=== PATIENT | female | born 1935 | race Caucasian/White ===

== ENCOUNTER 2019-01-14 12:05 | Emergency (ER) | payer MEDICARE ==
[~2019-01-14] VITALS: Ht 167.6 cm; Wt 88.5 kg
--- NOTE | ~2019-01-14 | EKG ---
[place], [place] ELECTROCARDIOGRAM REPORT NAME: JENNIFER ATKINS UNIT #: [id number] ROOM: DOCTOR: EPIPHANY DRAFT REPORT BIRTHDATE: [birth year] [facility] Test Date: 2019-01-14 Test Time: 12:07:06 Pat Name: JENNIFER ATKINS Department: er Room: Gender: F Auto Body Estimator: : 1935 Requested By: ASHVIN ANDREW Order Number: [id number] Reading MD: Shady Valderrama MD Measurements Intervals [place] Rate: 77 P: -27 NC: 186 QRS: -21 QRSD: 99 T: 29 QT: 385 QTc: 436 Interpretive Statements Sinus rhythm Borderline left axis deviation Low voltage, precordial leads Abnormal R-wave progression, late transition possible prior anterior NC Nonspecific T abnormalities, anterior leads Baseline wander in lead(s) V2 Electronically Signed On 01-15-2019 7:47:29 PDT by Shady Valderrama MD CM:EKGRPT:ELECTROCARDIOGRAM REPORT [id number] ASHVIN PIKE DRAFT REPORT ASHVIN ANDREW M.D.
[2019-01-14 12:20] LABS: BASO % 0.4 % (0.0-1.0); EOS # 0.1 10*3/uL (0.0-0.4); EOS % 2.8 % (1.0-4.0); HEMATOCRIT 30.7 % (37.0-47.0); HEMOGLOBIN 8.5 g/dl (12.0-16.0); LYMPH # 0.2 10*3/uL (1.3-4.4); LYMPH % 4.5 % (27.0-41.0); MEAN CELL VOLUME 97.8 fl (81.0-99.0); MEAN CORPUSCULAR HGB 27.1 pg (27.0-31.0); MEAN CORPUSCULAR HGB CONC 27.7 g/dl (33.0-37.0); MEAN PLATELET VOLUME 9.4 fl (9.6-12.3); MONO # 0.2 10*3/uL (0.1-1.0); MONO % 3.6 % (3.0-9.0); NEUT # 4.1 10*3/uL (2.3-7.9); NEUT % 88.5 % (47.0-73.0); PLATELET COUNT AUTOMATED 240 10*3/uL (130-400); RED BLOOD COUNT 3.14 10*6/uL (4.10-5.10); RED CELL DISTRI WIDTH 18.1 % (0-14.5); WHITE BLOOD COUNT 4.7 10*3/uL (4.8-10.8)
[2019-01-14 12:34] LABS: ACT PARTIAL THROMBO TIME 28.3 SECONDS (20.0-32.1); INTERNATIONAL NORM RATIO 0.9 (2.0-3.5)
[2019-01-14 12:35] LABS: ALBUMIN 2.6 gm/dl (3.1-4.5); ALKALINE PHOSPHATASE 75 U/L (45-117); BUN 13 mg/dl (7-24); CHLORIDE 101 mmol/L (98-107); CREATININE 0.82 mg/dL (0.55-1.02); POTASSIUM 3.8 mmol/L (3.5-5.1); SGOT/AST 9 IU/L (3-35); SGPT/ALT 7 U/L (12-78); SODIUM 140 mmol/L (136-145); TOTAL PROTEIN 7.2 gm/dL (6.4-8.2)
[2019-01-14 12:36] LABS: TROPONIN I < 0.015 ng/ml (<0.045)
== END 2019-01-14 15:08 | disposition home or self-care (01) ==
LOC: ED 12:05
PROVIDERS: Emergency Medicine
DX: J18.1 Lobar pneumonia, unspecified organism (principal); I50.9 Heart failure, unspecified; J44.9 Chronic obstructive pulmonary disease, unspecified; Z88.0 Allergy status to penicillin; Z88.5 Allergy status to narcotic agent; Z88.6 Allergy status to analgesic agent; Z91.013 Allergy to seafood; Z88.8 Allergy status to other drugs, medicaments and biological substances

== ENCOUNTER 2019-02-11 13:10 | Emergency (ER) | payer MEDICARE ==
[~2019-02-11] VITALS: Ht 170.1 cm; Wt 74.8 kg
[2019-02-11 14:12] LABS: BASO % 0.5 % (0.0-1.0); EOS # 0.3 10*3/uL (0.0-0.4); EOS % 4.1 % (1.0-4.0); HEMATOCRIT 31.8 % (37.0-47.0); HEMOGLOBIN 9.6 g/dl (12.0-16.0); LYMPH # 0.7 10*3/uL (1.3-4.4); LYMPH % 10.4 % (27.0-41.0); MEAN CELL VOLUME 97.2 fl (81.0-99.0); MEAN CORPUSCULAR HGB 29.4 pg (27.0-31.0); MEAN CORPUSCULAR HGB CONC 30.2 g/dl (33.0-37.0); MEAN PLATELET VOLUME 10.5 fl (9.6-12.3); MONO # 0.6 10*3/uL (0.1-1.0); MONO % 8.9 % (3.0-9.0); NEUT % 75.8 % (47.0-73.0); PLATELET COUNT AUTOMATED 203 10*3/uL (130-400); RED BLOOD COUNT 3.27 10*6/uL (4.10-5.10); RED CELL DISTRI WIDTH 18.9 % (0-14.5); WHITE BLOOD COUNT 6.5 10*3/uL (4.8-10.8)
[2019-02-11 14:28] LABS: ALBUMIN 2.9 gm/dl (3.1-4.5); ALKALINE PHOSPHATASE 81 U/L (45-117); BUN 38 mg/dl (7-24); CHLORIDE 82 mmol/L (98-107); CREATININE 1.32 mg/dL (0.55-1.02); POTASSIUM 2.6 mmol/L (3.5-5.1); SGOT/AST 15 IU/L (3-35); SGPT/ALT 12 U/L (12-78); SODIUM 134 mmol/L (136-145); TOTAL PROTEIN 7.2 gm/dL (6.4-8.2)
[2019-02-11 14:39] LABS: BILIRUBIN NEGATIVE (NEGATIVE); BLOOD 1+ (NEGATIVE); CLARITY CLEAR (CLEAR); COLOR YELLOW (YELLOW); GLUCOSE NEGATIVE (NEGATIVE); KETONE NEGATIVE (NEGATIVE); LEUKO ESTERASE NEGATIVE (NEGATIVE); NITRITE NEGATIVE (NEGATIVE); SPECIFIC GRAVITY <= 1.005 (1.005-1.030); UROBILINOGEN 0.2 E.U./dl (0.2-1.0)
[2019-02-11 15:05] LABS: HYALINE CAST 21-30
[2019-02-11 15:06] LABS: BACTERIA TRACE
== END 2019-02-11 16:30 ==
LOC: ED 13:10
PROVIDERS: Emergency Medicine
DX: S70.01XA Contusion of right hip, initial encounter (principal); M54.2 Cervicalgia; M25.522 Pain in left elbow; J44.9 Chronic obstructive pulmonary disease, unspecified; G30.9 Alzheimer's disease, unspecified; F02.80 Dementia in other diseases classified elsewhere, unspecified severity, without behavioral disturbance, psychotic disturbance, mood disturbance, and anxiety; G62.9 Polyneuropathy, unspecified; I50.9 Heart failure, unspecified; I11.0 Hypertensive heart disease with heart failure; Z88.0 Allergy status to penicillin; Z88.6 Allergy status to analgesic agent; Z91.013 Allergy to seafood; W18.39XA Other fall on same level, initial encounter; Y93.89 Activity, other specified; Y92.128 Other place in nursing home as the place of occurrence of the external cause; Y99.8 Other external cause status

== ENCOUNTER 2019-02-27 10:49 | Inpatient (IN) | payer MEDICARE, MEDICAID ==
[~2019-02-27] VITALS: Ht 172.7 cm; Wt 82.1 kg
--- NOTE | ~2019-02-27 | EKG ---
[place], [place] ELECTROCARDIOGRAM REPORT NAME: JENNIFER ATKINS UNIT #: [id number] ROOM: 408 DOCTOR: GLENDY DRAFT REPORT BIRTHDATE: [birth year] [facility] Test Date: 2019-02-27 Test Time: 11:01:30 Pat Name: JENNIFER ATKINS Department: Room: 408 Gender: F Refueler: : 1935 Requested By: TOÑITO COX Order Number: [id number] Reading MD: Radha Blankenship Measurements Intervals [place] Rate: 74 P: -30 MO: 157 QRS: -21 QRSD: 114 T: 43 QT: 438 QTc: 486 Interpretive Statements Sinus rhythm Borderline intraventricular conduction delay Abnormal R-wave progression, late transition Nonspecific repol abnormality, diffuse leads Compared to ECG 01/14/2019 12:07:06 Early repolarization now present Myocardial infarct finding no longer present T-wave abnormality no longer present Electronically Signed On 03-01-2019 11:57:29 PST by Radha Blankenship CM:EKGRPT:ELECTROCARDIOGRAM REPORT [id number] TOÑITO MERRILL DRAFT REPORT TOÑITO COX DO
--- NOTE | ~2019-02-27 | CON ---
[place], [place] REPORT OF CONSULTATION NAME: JENNIFER ATKINS UNIT #: [id number] ROOM: 408 DOCTOR: CEE MART MDDAVID BIRTHDATE: [birth year] DOS: 02/28/2019 PULMONARY CONSULTATION, EVALUATION AND MANAGEMENT CONSULTATION REQUESTED BY: Hospitalist service. REASON FOR CONSULTATION: For assessment of respiratory distress as well. HISTORY OF PRESENT ILLNESS: This is an 84-year-old elderly female patient who has been admitted to the hospital under the care of the hospitalist service on 02/27/2019. She has been reported she has history of chronic obstructive pulmonary disease and chronic hypoxic respiratory failure, and history of dementia. She stays in the nursing facility. She has been noted forgetful. The patient is not able to give me much history. All the history or most of the history currently documented with medical record documentation by the other physician's notes. She has been brought to the hospital. She has been noted low potassium level. The patient has been noted with symptoms of dizziness as well. The patient reporting symptoms of increased confusion as well. Coughing chest congestion. She is not sure about symptoms of shortness of breath. Denies symptoms of headache or diplopia. She has arterial blood gases done yesterday, which was noted with evidence of hypercapnia. She has been started on the BiPAP that had been used for several hours this morning. The patient is using oxygen supplement nasal cannula. Remaining history is limited. PAST MEDICAL HISTORY: Reported: 1. COPD. 2. Dementia. 3. Osteoarthritis. 4. Congestive heart failure, whether a preserved ejection fraction or reduced ejection fraction was not known. 5. Osteoarthritis. 6. Hypothyroidism. PAST SURGICAL HISTORY: Listed as cholecystectomy, hernia repair, total knee replacement, surgery of the neck and partial hysterectomy. SOCIAL HISTORY: Resident of senior living. Denies tobacco, alcohol or illicit drug use. FAMILY HISTORY: The patient reported father with complication of black lung and mother during childbirth at younger age. CURRENT MEDICATIONS: Which were administered on this hospitalization were reviewed as vitamin D, sertraline, calcium carbonate, chewable aspirin, levothyroxine, Remeron, gabapentin, DuoNeb, and some other medications. The patient is also seemed to be taking prednisone 2.5 mg again the reason for that was unknown. DRUG ALLERGIES: REPORTED: 1. PENICILLIN. [place], [place] REPORT OF CONSULTATION NAME: JENNIFER ATKINS UNIT #: [id number] ROOM: 408 DOCTOR: CEE MART MD,DAVID BIRTHDATE: [birth year] 2. CODEINE. 3. OXYCODONE. 4. HYDROMORPHONE. 5. SHRIMPS. PHYSICAL EXAMINATION: GENERAL: An 84-year-old female patient who has been currently noted awake and alert, lying in the bed. Height of 5 feet 8 inches, 175 pounds, BMI 26. Using oxygen supplement nasal cannula. VITAL SIGNS: Normal temperature, respiratory rate 18-16, heart rate 65-73, blood pressure 92/42-108/68. Pulse ox saturation on 2 liters nasal cannula 97% saturation. HEENT: Examination shows head was atraumatic. Eyes nonicterus. NECK: Supple. CARDIOVASCULAR: S1, S2 audible. LUNGS: Decreased breath in the lungs were noted bilaterally with expiratory wheezing moderately. ABDOMEN: Soft, nontender. Bowel sounds present. It was flat. EXTREMITIES: . Mild edema of the lower extremity was noted. VISIBLE SKIN: No lesions or rashes. CENTRAL NERVOUS SYSTEM: The patient appeared to be overall intact. LABORATORY DATA: CBC that was done yesterday, WBC count 7.2, hemoglobin 10.1, platelet count of 34. MCV 103. Platelet count normal. CMP yesterday, BUN 37, creatinine 1.34. Potassium was 2.3. CO2 was noted at 53, which is severely elevated, chloride of 84. Lactic acid was 2.3. This morning's lab, WBC count was noted as 5.5, hemoglobin 9.9, hematocrit 34.2, platelet count 288,000. CMP that was done this morning, BUN 32, creatinine was normal. CO2 was noted at 52. Potassium was 3.4. Phosphorus 2.2. Chest x-ray, 1 view, which was done yesterday reviewed, shows increased interstitial marking was noted in the lungs bilaterally with a small pleural fluid cannot be excluded. With just 1 view x-ray she does have some area of scarring. IMPRESSION: 1. The patient has been noted with history of dementia, noted very severe metabolic acidosis with compensatory respiratory acidosis. Possible consideration of chronic obstructive pulmonary disease, intravascular volume depletion as well. Severe hypokalemia would also result in metabolic acidosis as well as respiratory acidosis as well related to diuretics as well. Primary alkalosis problem should be excluded as well. 2. Acute kidney injury noted with resolution at this time. PLAN OF MANAGEMENT: Avoid any diuretics, intravascular volume correction as well. The BiPAP is not necessary at this time. The patient was noted with metabolic and respiratory alkalosis with arterial blood gas, which was done yesterday shows pH of 7.47, pCO2 of 72, pO2 of 78. Obtain a chest x-ray, PA and lateral, as well. Aggressive supplementation of potassium as well. The patient will be started on the Diamox, but after the correction of the potassium. Other therapy, plan of management additional treatment changes will be ordered was made based on progression of the illness. Supportive care, other therapy, plan [place], [place] REPORT OF CONSULTATION NAME: JENNIFER ATKINS UNIT #: [id number] ROOM: [facility] DOCTOR: DAVID CALIXTO MD BIRTHDATE: [birth year] of management, care plan of treatment and management plan of care. Thanks for allowing me to participate in the care of this patient. DAVID MIKE MD CM:CONSTR:REPORT OF CONSULTATION 1221 02/28/19 1926 interface
--- NOTE | ~2019-02-27 | PR ---
[place], [place] PROGRESS NOTE NAME: JENNIFER ATKINS UNIT #: [id number] ROOM: 408 DOCTOR: DAVID CALIXTO MD BIRTHDATE: [birth year] DOS: 03/01/2019 SUBJECTIVE: She has been noted comfortable at this time without any distress this morning, noted fully awake and alert. Denies symptoms of chest pain, fever or chills. She has been noted without any acute symptoms today. REVIEW OF SYSTEMS: Very limited because of history of dementia, but does not complain of any acute symptoms. OBJECTIVE: VITAL SIGNS: Normal temperature, respiratory rate 16, heart rate 78, blood pressure ____ /51. Pulse oxygen saturation recorded on 2 liters nasal cannula 93% saturation. HEENT: Examination shows head was atraumatic. Eyes nonicterus. NECK: Supple. CARDIOVASCULAR: S1, S2 audible. LUNGS: Noted with decreased breath sounds in the lungs bilaterally. Wheezing noted decreased. ABDOMEN: Soft, nontender. Bowel sounds present. EXTREMITIES: Noted without any acute edema. MUSCULOSKELETAL: Without acute deformities. LABORATORY DATA: BMP that was done yesterday after supplementation of potassium aggressively, BUN 31, creatinine was normal, glucose 137. CO2 was 44. CMP this morning is BUN 29, creatinine 0.92. CO2 was 38 today. The blood culture showed no bacterial growth. The chest x-ray that was obtained yesterday was reviewed, shows small area of atelectasis of the left lower lobe. IMPRESSION: Acute exacerbation of bronchial asthma/chronic obstructive as well. Basilar area of atelectasis in left lung with some mucus impaction, correction of very severe metabolic alkalosis with resolution of hypokalemia. PLAN OF MANAGEMENT: No changes in the plan of care at this time. Continue steroids, bronchodilators, oxygen supplementation, BiPAP patient any respiratory distress for this patient could be used. Gradual reduction of corticosteroids. [place], [place] PROGRESS NOTE NAME: JENNIFER ATKINS UNIT #: [id number] ROOM: 408 DOCTOR: DAVID CALIXTO MD BIRTHDATE: [birth year] DAVID MIKE MD CM:PNTRANS [id number] DAVID MART MD 03/01/19 1427 interface
[2019-02-27 10:53] VITALS: BP 91/72
[2019-02-27 11:18] LABS: BASO % 0.4 % (0.0-1.0); EOS # 0.5 10*3/uL (0.0-0.4); EOS % 6.6 % (1.0-4.0); HEMATOCRIT 34.2 % (37.0-47.0); HEMOGLOBIN 10.1 g/dl (12.0-16.0); LYMPH # 0.5 10*3/uL (1.3-4.4); LYMPH % 6.9 % (27.0-41.0); MEAN CELL VOLUME 100.9 fl (81.0-99.0); MEAN CORPUSCULAR HGB 29.8 pg (27.0-31.0); MEAN CORPUSCULAR HGB CONC 29.5 g/dl (33.0-37.0); MEAN PLATELET VOLUME 9.4 fl (9.6-12.3); MONO # 0.5 10*3/uL (0.1-1.0); MONO % 7.3 % (3.0-9.0); NEUT # 5.6 10*3/uL (2.3-7.9); NEUT % 78.4 % (47.0-73.0); PLATELET COUNT AUTOMATED 285 10*3/uL (130-400); RED BLOOD COUNT 3.39 10*6/uL (4.10-5.10); RED CELL DISTRI WIDTH 19.3 % (0-14.5); WHITE BLOOD COUNT 7.2 10*3/uL (4.8-10.8)
[2019-02-27 11:27] LABS: ACT PARTIAL THROMBO TIME 26.2 SECONDS (20.0-32.1)
[2019-02-27 11:37] LABS: ALBUMIN 2.9 gm/dl (3.1-4.5); ALKALINE PHOSPHATASE 77 U/L (45-117); BUN 39 mg/dl (7-24); CHLORIDE 85 mmol/L (98-107); CREATININE 1.57 mg/dL (0.55-1.02); LIPASE 117 U/L (73-393); POTASSIUM 2.5 mmol/L (3.5-5.1); SGOT/AST 19 IU/L (3-35); SGPT/ALT 12 U/L (12-78); SODIUM 136 mmol/L (136-145); TOTAL PROTEIN 7.7 gm/dL (6.4-8.2)
--- NOTE | 2019-02-27 11:37 | NUR ---
DR COX AWARE OF CRITICAL LACTIC ACID OF 2.3
[2019-02-27 11:51] LABS: TROPONIN I < 0.015 ng/ml (<0.045)
--- NOTE | 2019-02-27 11:55 | NUR ---
DR COX AWARE OF CRITICAL CARBON DIOXIDE LEVEL 53
[2019-02-27 12:08] LABS: BILIRUBIN NEGATIVE (NEGATIVE); BLOOD 1+ (NEGATIVE); CLARITY CLOUDY (CLEAR); COLOR YELLOW (YELLOW); GLUCOSE NEGATIVE (NEGATIVE); KETONE NEGATIVE (NEGATIVE); LEUKO ESTERASE NEGATIVE (NEGATIVE); NITRITE NEGATIVE (NEGATIVE); SPECIFIC GRAVITY 1.015 (1.005-1.030); UROBILINOGEN 0.2 E.U./dl (0.2-1.0)
[2019-02-27 12:28] LABS: BACTERIA 3+; EPITHELIAL CELLS 20-30
[2019-02-27 13:07] VITALS: BP 108/68
[2019-02-27 14:01] LABS: ABG HCO3 54.1 mmol/l (22-26); ABG O2 SATURATION 99.5 % (95-97); ARTERIAL BLOOD GAS PH 7.488 (7.35-7.45)
[2019-02-27 14:04] LABS: ARTERIAL BLOOD GAS PCO2 71.8 mmHg (35-45)
--- NOTE | 2019-02-27 14:30 | NUR ---
NOTIFIED DR. BAUGH PATIENT FAMILY OKAY WITH BIPAP.
--- NOTE | 2019-02-27 14:38 | NUR ---
patient comes in from the [facility]. Patient is prison care and ok to return when medically stable for discharge.
--- NOTE | 2019-02-27 14:45 | NUR ---
Time: 1424 A 84 year old FEMALE admitted to under services of MUSA CRONIN DO. Pt. arrived via stretcher from ER. Chief complaint: ABNORMAL LABS. CHRISTINE ZAFAR
--- NOTE | 2019-02-27 15:24 | NUR ---
ATTEMPTED TO NOTIFY AZIZ OF NEW CONSULT. NO ANSWER. WILL RETRY.
--- NOTE | 2019-02-27 16:00 | NUR ---
PATIENT PLACED ON BIPAP. SETTING 10/ 30%. PATIENT TOLERATING WELL. WILL CONTINUE TO MONITOR.
[2019-02-27] MEDS ORDERED: ASPIRIN ADULT L81 M1 PO (16:23)
[2019-02-27] MEDS ORDERED: BIOFREEZE118 ML T (16:24)
[2019-02-27] MEDS ORDERED: CALCIUM 500 +1 EAC1 PO (16:25)
[2019-02-27] MEDS ORDERED: NEURONTIN300 MG PO (16:26)
[2019-02-27] MEDS ORDERED: Ipratropium Brom3 ML INH (16:26)
[2019-02-27] MEDS ORDERED: LASIX40 MG PO (16:27)
[2019-02-27] MEDS ORDERED: METOLAZONE5 MG PO (16:28)
[2019-02-27] MEDS ORDERED: MILK OF MA400 MG/5 M PO (16:29)
[2019-02-27] MEDS ORDERED: REMERON15 M2 PO (16:30)
[2019-02-27] MEDS ORDERED: DELTASONE2.5 MG PO (16:30)
[2019-02-27] MEDS ORDERED: GERI-KOT8.6 MG PO (16:31)
[2019-02-27] MEDS ORDERED: SYNTHROID,LEV125 MCG PO (16:36)
[2019-02-27] MEDS ORDERED: ZOLOFT100 MG PO (16:36)
[2019-02-27] MEDS ORDERED: VITAMIN D34000 UNIT PO (16:37)
[2019-02-27] MEDS ORDERED: TYLENOL EXTRA500 MG PO (16:38)
[2019-02-27 17:56] LABS: ABG BASE EXCESS 24.8 mmol/L (-2.0-2.0); ABG HCO3 52.7 mmol/l (22-26); ABG O2 SATURATION 95.4 % (95-97); ARTERIAL BLOOD GAS PH 7.473 (7.35-7.45); ARTERIAL BLOOD GAS PO2 78.2 mmHg (80-90)
[2019-02-27 17:58] LABS: ARTERIAL BLOOD GAS PCO2 72.4 mmHg (35-45)
--- NOTE | 2019-02-27 18:48 | NUR ---
NOTIFIED DR. MIKE OF PATIENT ABGS. NO NEW ORDERS RECEIVED. WILL CONTINUE TO MONITOR.
--- NOTE | 2019-02-27 19:00 | NUR ---
ASSUMED CARE FOR THIS PT AT THIS TIME. PT AWAKE IN BED EATING DINNER. PT ALERT TO PERSON/PLACE. ASSISTED X2 TO BSC. PT VOIDED W/OUT DIFF. BED IN LOW POSITION W/ALARM ON AND CALL LIGHT IN REACH. NO S/S OF RESP DISTRESS NOTED. O2 VIA NC AT 2LPM ON.
--- NOTE | 2019-02-27 19:00 | NUR ---
PATIENT TAKEN OFF BIPAP TO EAT AND TAKE MEDICATION. WILL CONTINUE TO MONITOR.
[2019-02-27 20:00] VITALS: BP 112/68
[2019-02-28] VITALS: BP 92/42
[2019-02-28 06:24] LABS: ALBUMIN 2.7 gm/dl (3.1-4.5); ALKALINE PHOSPHATASE 74 U/L (45-117); BUN 33 mg/dl (7-24); CHLORIDE 92 mmol/L (98-107); CHOLESTEROL 220 mg/dL (<200); FREE T4 0.79 ng/dl (0.76-1.46); HDL CHOLESTEROL 71 mg/dl (40-60); LDL CHOLESTEROL 126 mg/dL (9-159); PHOSPHOROUS 2.2 mg/dL (2.5-4.9); POTASSIUM 3.4 mmol/L (3.5-5.1); SGOT/AST 16 IU/L (3-35); SGPT/ALT 12 U/L (12-78); SODIUM 141 mmol/L (136-145); TOTAL PROTEIN 7.2 gm/dL (6.4-8.2); TRIGLYCERIDES 113 mg/dl (<150); VLDL CHOLESTEROL 23 mg/dL (6-40)
[2019-02-28 06:46] LABS: BASO % 0.4 % (0.0-1.0); EOS # 0.5 10*3/uL (0.0-0.4); EOS % 9.5 % (1.0-4.0); HEMATOCRIT 34.2 % (37.0-47.0); HEMOGLOBIN 9.9 g/dl (12.0-16.0); LYMPH # 0.8 10*3/uL (1.3-4.4); LYMPH % 14.4 % (27.0-41.0); MEAN CELL VOLUME 103.3 fl (81.0-99.0); MEAN CORPUSCULAR HGB 29.9 pg (27.0-31.0); MEAN CORPUSCULAR HGB CONC 28.9 g/dl (33.0-37.0); MEAN PLATELET VOLUME 10.4 fl (9.6-12.3); MONO # 0.5 10*3/uL (0.1-1.0); MONO % 8.8 % (3.0-9.0); NEUT # 3.7 10*3/uL (2.3-7.9); NEUT % 66.7 % (47.0-73.0); PLATELET COUNT AUTOMATED 288 10*3/uL (130-400); RED BLOOD COUNT 3.31 10*6/uL (4.10-5.10); RED CELL DISTRI WIDTH 19.3 % (0-14.5); WHITE BLOOD COUNT 5.5 10*3/uL (4.8-10.8)
--- NOTE | 2019-02-28 06:48 | NUR ---
DR. LOPEZ NOTIFIED OF CO2 LEVEL OF 52 NOW.
[2019-02-28 07:48] LABS: VITAMIN D, 25-HYDROXY 27.2 ng/mL (30-100)
[2019-02-28 08:00] VITALS: BP 101/51
--- NOTE | 2019-02-28 08:12 | NUR ---
PHYSICAL THERAPY Screen received as well as Physical Therapy orders will follow, thank you Marilyn Caballero PT
--- NOTE | 2019-02-28 08:32 | NUR ---
Nursing screen and Occupational Therapy referral received. Thank you. Opal Snowden OTR/L
--- NOTE | 2019-02-28 08:59 | NUR ---
Patient not available for Occupational Therapy evluation as she is eating breakfast. OT will recheck at a later time. Opal Snowden OTR/l
--- NOTE | 2019-02-28 09:21 | NUR ---
PHYSICAL THERAPY Attempted to see pt this AM in room for evaluation unavailable as eating breakfast, will follow later this AM. Marilyn Caballero PT
--- NOTE | 2019-02-28 09:50 | NUR ---
Occupational Therapy evaluation completed on 4 with full eval to follow. Precautions include fall risk, impaired cognition,assist w/ ADLs and mobility, bed alarm, ww use w/ assist, moderate complexity level [id number] via chart review, testing and evaluation. Recommend OT per pOC and return to LTC at [facility]. Thank you. Opal Snowden OTr/L
--- NOTE | 2019-02-28 10:51 | NUR ---
PHYSICAL THERAPY [place] completed full report to follow moderate level of [id number] PT to work on transfers,strengthening and ambulation, recomend SNF at discharge. Marilyn Caballero PT
[2019-02-28 12:00] VITALS: BP 122/67
--- NOTE | 2019-02-28 12:57 | NUR ---
PATIENT TAKEN OFF FLOOR FOR CHEST XRAY
--- NOTE | 2019-02-28 13:00 | NUR ---
OT NOTE Attempted to see pt this P.M. for OT session and upon arrival pt was out of the room for a medical test. Will check back at a later time/date and continue with POC as able. KADI Bacon/Cheryl
[2019-02-28 16:00] VITALS: BP 122/59
--- NOTE | 2019-02-28 16:06 | NUR ---
NOTIFIED DR. BAUGH OF PATIENTS CHANGE OF CONDITION FROM THIS MORNING. DR. BAUGH TO COME TO FLOOR.
--- NOTE | 2019-02-28 16:44 | NUR ---
PATIENT PLACED ON BIPAP.
[2019-02-28 18:39] LABS: BUN 31 mg/dl (7-24); CHLORIDE 93 mmol/L (98-107); CREATININE 0.87 mg/dL (0.55-1.02); SODIUM 138 mmol/L (136-145)
[2019-02-28 18:40] LABS: POTASSIUM 4.5 mmol/L (3.5-5.1)
--- NOTE | 2019-02-28 18:46 | NUR ---
ATTEMPTED TO CALL DR. MKIE WITH PATIENT CHEST XRAY AND LAB RESULTS. NO ANSWER. WILL RETRY
--- NOTE | 2019-02-28 18:56 | NUR ---
VOICEMAIL LEFT FOR DR. MIKE
--- NOTE | 2019-02-28 19:12 | NUR ---
DR. MIKE CALLED BACK. MADE AWARE OF PATIENT LAB RESULTS AND CHEST XRAY. WANTS REPEAT BNP
[2019-02-28 20:00] VITALS: BP 105/53
[2019-03-01] VITALS: BP 104/51
--- NOTE | 2019-03-01 00:51 | NUR ---
RESTORIL GIVEN PER PRN ORDER FOR INABILITY TO SLEEP . SEE EMAR.REINFORCED USE OF CALL LIGHT.
--- NOTE | 2019-03-01 02:15 | NUR ---
PATIENT RESTING QUIETLY. MEDICATION APPEARS EFFECTIVE.
--- NOTE | 2019-03-01 03:30 | NUR ---
Pt still resting on BiPap 10/5 and an FiO2 of 45%. SpO2 96%. Alarms on and audible.
[2019-03-01 06:44] LABS: HEMATOCRIT 32.4 % (37.0-47.0); HEMOGLOBIN 9.6 g/dl (12.0-16.0); MEAN CELL VOLUME 104.2 fl (81.0-99.0); MEAN CORPUSCULAR HGB 30.9 pg (27.0-31.0); MEAN CORPUSCULAR HGB CONC 29.6 g/dl (33.0-37.0); MEAN PLATELET VOLUME 10.4 fl (9.6-12.3); PLATELET COUNT AUTOMATED 246 10*3/uL (130-400); RED BLOOD COUNT 3.11 10*6/uL (4.10-5.10); RED CELL DISTRI WIDTH 19.3 % (0-14.5); WHITE BLOOD COUNT 6.9 10*3/uL (4.8-10.8)
[2019-03-01 06:50] LABS: BUN 29 mg/dl (7-24); CHLORIDE 99 mmol/L (98-107); CREATININE 0.96 mg/dL (0.55-1.02); POTASSIUM 4.8 mmol/L (3.5-5.1); SODIUM 139 mmol/L (136-145)
--- NOTE | 2019-03-01 07:25 | NUR ---
Updated clinicals faxed to [facility] for review. Notified [facility] patient is currently using bipap. Patient is long term care social worker care and ok to return when medically stable for discharge.
[2019-03-01 08:00] VITALS: BP 129/51
--- NOTE | 2019-03-01 08:00 | NUR ---
PATIENT SITTING UP IN BED, EATING BREAKFAST. NO SIGNS OF DISTRESS. RESPIRATIONS EASY NON LABORED. 2 LITERS NC ON. PATIENT VOICES NO COMPLAINTS AT THIS TIME. WILL CONTINUE TO MONITOR.
[2019-03-01 08:04] LABS: POLYCHROMASIA SLIGHT; STOMATOCYTE FEW; TOTAL CELLS COUNTED 100 #CELLS
[2019-03-01 08:05] LABS: PLATELET SUFFICIENCY NORMAL (NORMAL)
--- NOTE | 2019-03-01 09:00 | NUR ---
PHYSICAL THERAPY Patient seen this am 1;1 for therapy visit and was just finishing breakfast in bed upon therapist arrival. Patient identified by name / and presented with continuos O2-2L via NC. Patient voices no new c/o's and transfers supine to sit EOB with MIN A. Patient resting SpO2 95% then upon sit to stand, CGA, tolerated < 1 minute static stand as SpO2 dropped to 85%. Patient instructed on purse lip breathing technique and needed seated rest break secondary to B UE "shakes". Patient able to collect herself with SpO2 returning to 95% and was able to ambulate 10'x 1, wh walker, CGA/MIN, demonstrating POOR upright posture, decreased stride and increased fatigue. Patient returned to supine in bed with SpO2 dropping again to 85%. Patient remained in bed with call light, tray table, telephone and bed alarm for safety. SpO2 returned to 95% again following brief rest. Will continue per POC as tolerated, total treatment time 16 minutes. Abebe Lynn, HEALTH INSURANCE SPECIALIST
--- NOTE | 2019-03-01 09:10 | NUR ---
OT NOTE Pt was seen this A.M. 1:1 for 19 minute OT session. Upon arrival pt was supine in bed. Pt identified by name and and had no complaints at this time. Pt presented to therapy with continuosu 2L-O2 via NC which she remained on throughout the entire session. At rest pt's Spo2 was 95%. Pt transferred supine to sit EOB with modA for assist with UB. Pt completed multiple sit to stand transfers from bed level with Aleida and use of w/w for UE support. Challenged pt's static standing tolerance needed for increased I in self care tasks and functional transfers. Pt was able to tolerate aprox 45-60 seconds before SpO2 dropped to 85% resulting in a seated rest break. Pt was educated on breathing techniques throughout and presented with fair carry over. After aprox 2 minutes of a seated rest pt's SpO2 raised back to 91%. Pt then transferred back into bed sit to supine with modA. There she was left with call light in hand, tray table in place, and bed alarm activated for safety. Continue with rec D/C plan to return to [facility]. KADI Bacon/Cheryl
[2019-03-01 12:00] VITALS: BP 103/61
--- NOTE | 2019-03-01 12:15 | NUR ---
OT NOTE Pt was seen this P.M. 1:1 for second OT session consisting of 15 minutes. Upon arrival pt was supine in bed. Pt identified by name and and had no complaints at this time. Pt presented to therapy with continuous 2L-O2 via NC which she remained on throughout the entire session. Pt's resting SpO2 was 94%. Pt transferred supine to sit EOB with Aleida for assist with UB. Pt then completed multiple sit to stand transfers from bed level with Aleida and use of w/w for UE support. Challenged pt's static standing tolerance needed for increased I in self care tasks and functional tranfers. Pt was able to tolerate aprox 2 minutes at a time this session before SpO2 would drop to 88%. Within aprox a minute SpO2 raised to 93%. Pt then transferred back into bed sit to supine with Aleida. There she was left with call light in hand, tray table in place, and bed alarm activated for safety. Continue with rec D/C plan to return to [facility]. BETTYE Bacon
[2019-03-01] MEDS ORDERED: ALDACTONE25 M1 PO (14:48)
[2019-03-01] MEDS ORDERED: PREDNISONE10 MG PO (14:48)
[2019-03-01] MEDS ORDERED: NEURONTIN300 MG PO (14:49)
--- NOTE | 2019-03-01 14:59 | NUR ---
PHYSICAL THERAPY CO-SIGN I approve of the Physical Therapy notes written above. Marilyn Caballero PT
--- NOTE | 2019-03-01 15:16 | NUR ---
Patient is discharged to return to [facility]. transportation scheduled for 4 PM with [facility]. NH, nursing/animal warden and daughter all notified.
--- NOTE | 2019-03-01 15:25 | NUR ---
OCCUPATIONAL THERAPY CO-SIGN I approve of the Occupational Therapy notes written above. Rosanna Mendiola, OTR/L
--- NOTE | 2019-03-01 15:46 | NUR ---
2 IVS REMOVED. [facility] HERE TO PICK PATIENT UP. PATIENT OFF FLOOR AT THIS TIME. Discharge instructions reviewed with patient/family. Patient receptive and verbalizes understanding. Follow-up care arranged. Written instructions given to patient/family. CHRISTINE ZAFAR
--- NOTE | 2019-03-07 07:14 | NUR ---
OCCUPATIONAL THERAPY CO-SIGN I approve of the Occupational Therapy notes written above. VINOD ENGLISH OTR/Cheryl
== END 2019-03-01 15:46 | DRG 70 ==
LOC: ED 10:49 → 4E 12:41 → EDHOLD 12:41 → 4E 12:42
PROVIDERS: Emergency Medicine; Internal Medicine; Internal Medicine Critical Care Medicine; ADMIT Internal Medicine
PROC: 5A09357 Assistance with Respiratory Ventilation, Less than 24 Consecutive Hours, Continuous Positive Airway Pressure (ICD-10-PCS; principal; 2019-02-27)
PROC: 5A09357 Assistance with Respiratory Ventilation, Less than 24 Consecutive Hours, Continuous Positive Airway Pressure (ICD-10-PCS; 2019-02-28)
PROC: 5A09357 Assistance with Respiratory Ventilation, Less than 24 Consecutive Hours, Continuous Positive Airway Pressure (ICD-10-PCS; 2019-03-01)
DX: G93.41 Metabolic encephalopathy (principal); N17.0 Acute kidney failure with tubular necrosis; J96.22 Acute and chronic respiratory failure with hypercapnia; J18.9 Pneumonia, unspecified organism; E87.2 Acidosis; E44.0 Moderate protein-calorie malnutrition; J44.1 Chronic obstructive pulmonary disease with (acute) exacerbation; J45.901 Unspecified asthma with (acute) exacerbation; E87.4 Mixed disorder of acid-base balance; E87.3 Alkalosis; E86.0 Dehydration; E87.6 Hypokalemia; Z66 Do not resuscitate; Z51.5 Encounter for palliative care; E03.9 Hypothyroidism, unspecified; M16.11 Unilateral primary osteoarthritis, right hip; D53.9 Nutritional anemia, unspecified; E83.41 Hypermagnesemia; E87.8 Other disorders of electrolyte and fluid balance, not elsewhere classified; J44.9 Chronic obstructive pulmonary disease, unspecified; Z96.659 Presence of unspecified artificial knee joint; I50.9 Heart failure, unspecified; F03.90 Unspecified dementia, unspecified severity, without behavioral disturbance, psychotic disturbance, mood disturbance, and anxiety; M19.90 Unspecified osteoarthritis, unspecified site; R73.9 Hyperglycemia, unspecified; G62.9 Polyneuropathy, unspecified; T50.2X5A Adverse effect of carbonic-anhydrase inhibitors, benzothiadiazides and other diuretics, initial encounter; Y92.89 Other specified places as the place of occurrence of the external cause; Z88.0 Allergy status to penicillin; Z88.5 Allergy status to narcotic agent; Z88.6 Allergy status to analgesic agent; Z91.013 Allergy to seafood; Z91.81 History of falling; Z90.49 Acquired absence of other specified parts of digestive tract; Z90.711 Acquired absence of uterus with remaining cervical stump; Z83.6 Family history of other diseases of the respiratory system; Z68.26 Body mass index [BMI] 26.0-26.9, adult

== ENCOUNTER 2019-05-09 17:33 | Inpatient (IN) | payer OTHER ==
[~2019-05-09] VITALS: Ht 165.1 cm; Wt 80.4 kg
[~2019-05-09 17:33] MED LIST: ALDACTONE25 M1 PO; ASPIRIN ADULT L81 M1 PO; BIOFREEZE118 ML T; CALCIUM 500 +1 EAC1 PO; DELTASONE2.5 MG PO; GERI-KOT8.6 MG PO; Ipratropium Brom3 ML INH; LASIX40 MG PO; METOLAZONE5 MG PO; MILK OF MA400 MG/5 M PO; NEURONTIN300 MG PO; PREDNISONE10 MG PO; REMERON15 M2 PO; SYNTHROID,LEV125 MCG PO; TYLENOL EXTRA500 MG PO; VITAMIN D34000 UNIT PO; ZOLOFT100 MG PO
[2019-05-09 17:36] VITALS: BP 108/65
[2019-05-09 18:22] LABS: HEMATOCRIT 31.8 % (37.0-47.0); HEMOGLOBIN 9.5 g/dl (12.0-16.0); MEAN CELL VOLUME 110.4 fl (81.0-99.0); MEAN CORPUSCULAR HGB CONC 29.9 g/dl (33.0-37.0); MEAN PLATELET VOLUME 9.7 fl (9.6-12.3); PLATELET COUNT AUTOMATED 300 10*3/uL (130-400); RED BLOOD COUNT 2.88 10*6/uL (4.10-5.10); WHITE BLOOD COUNT 5.2 10*3/uL (4.8-10.8)
[2019-05-09 18:37] LABS: ACT PARTIAL THROMBO TIME 29.3 SECONDS (20.0-32.1)
[2019-05-09 18:41] LABS: CREATININE 1.19 mg/dL (0.55-1.02); POTASSIUM 4.6 mmol/L (3.5-5.1); TOTAL PROTEIN 7.6 gm/dL (6.4-8.2)
[2019-05-09 18:46] LABS: BASOPHILS 3 % (0-1); TOTAL CELLS COUNTED 100 #CELLS
[2019-05-09 18:47] LABS: STOMATOCYTE FEW
[2019-05-09 18:48] LABS: PLATELET SUFFICIENCY NORMAL (NORMAL)
--- NOTE | 2019-05-09 21:26 | NUR ---
DIAPERS SATURATED. bEDPAN FOR 200 CC XOCHITL URINE. CLEANSED AND NEW DIAPER APPLIED. REPOSITIONED. NO C/O. RESP DEEP AND EASY.
[2019-05-09 21:27] VITALS: BP 106/60
[2019-05-09 23:47] VITALS: BP 99/50
[2019-05-10 00:05] LABS: TROPONIN I < 0.015 ng/ml (<0.045)
--- NOTE | 2019-05-10 00:39 | NUR ---
A 84, admitted to , under the services of DANILO Priest DO with a diagnosis of . Chief complaint is SHORTNESS OF BREATH. Patient arrived via stretcher from ER. Monitor applied. Initial assessment completed. Vital signs taken and recorded. DANILO PRIEST DO notified of admission to the unit. Orders received. See assessment for past medical history, medications and allergies. Patient and/or family oriented to unit. [facility] visitation policy reviewed. Clothing/patient valuable form completed. NILO MENEZES
[2019-05-10 00:40] VITALS: BP 102/36
--- NOTE | 2019-05-10 00:55 | NUR ---
Pt decreased from 5L NC to 4L NC. SpO2 97%. Pt started on incentive spirometer. Pt only got 500cc but encouraged self-use.
[2019-05-10] MEDS ORDERED: NEURONTIN300 MG PO (01:11)
[2019-05-10] MEDS ORDERED: MUCINEX ER600 MG PO (01:13)
[2019-05-10] MEDS ORDERED: KLOR-CON 1010 ME1 PO (01:14)
--- NOTE | 2019-05-10 01:17 | NUR ---
MED REC COMPLETED WITH LIST FROM [facility].
--- NOTE | 2019-05-10 02:34 | NUR ---
DR VELARDE AWARE PT IS STATING SHE WANTS TO BE A FULL CODE. TO DISCUSS WITH PATIENT IN THE MORNING.
[2019-05-10 05:45] LABS: BUN 27 mg/dl (7-24); CHLORIDE 99 mmol/L (98-107); CHOLESTEROL 204 mg/dL (<200); CREATININE 1.09 mg/dL (0.55-1.02); FREE T4 0.96 ng/dl (0.76-1.46); HDL CHOLESTEROL 74 mg/dl (40-60); LDL CHOLESTEROL 110 mg/dL (9-159); PHOSPHOROUS 3.3 mg/dL (2.5-4.9); POTASSIUM 4.2 mmol/L (3.5-5.1); SODIUM 139 mmol/L (136-145); TRIGLYCERIDES 102 mg/dl (<150); VLDL CHOLESTEROL 20 mg/dL (6-40)
[2019-05-10 05:50] LABS: TROPONIN I < 0.015 ng/ml (<0.045)
[2019-05-10 06:13] LABS: HEMATOCRIT 33.9 % (37.0-47.0); HEMOGLOBIN 9.9 g/dl (12.0-16.0); MEAN CELL VOLUME 110.4 fl (81.0-99.0); MEAN CORPUSCULAR HGB 32.2 pg (27.0-31.0); MEAN CORPUSCULAR HGB CONC 29.2 g/dl (33.0-37.0); MEAN PLATELET VOLUME 10.1 fl (9.6-12.3); PLATELET COUNT AUTOMATED 318 10*3/uL (130-400); RED BLOOD COUNT 3.07 10*6/uL (4.10-5.10); RED CELL DISTRI WIDTH 15.1 % (0-14.5); WHITE BLOOD COUNT 6.1 10*3/uL (4.8-10.8)
--- NOTE | 2019-05-10 07:30 | NUR ---
TOOK OVER CARE OF PT AT THIS TIME. PT SITTING UP IN BED, ALERT/ORIENTED WITH PERIODS OF CONFUSED CONVERSATION. RESPIRATIONS ARE EASY/UNLABORED ON 4L NC. ASSESSMENT IS COMPLETE. ALL SAFETY MEASURES IN PLACE. CALL LIGHT IN RAECH.
[2019-05-10 07:42] LABS: PLATELET SUFFICIENCY NORMAL (NORMAL); STOMATOCYTE MODERATE; TOTAL CELLS COUNTED 100 #CELLS
[2019-05-10 07:45] LABS: VITAMIN D, 25-HYDROXY 41.9 ng/mL (30-100)
--- NOTE | 2019-05-10 07:50 | NUR ---
24 HR chart check completed.
[2019-05-10 08:00] VITALS: BP 100/65
[2019-05-10 09:20] VITALS: BP 130/64
--- NOTE | 2019-05-10 10:20 | NUR ---
Occupational therapy orders received and OT evaluation completed in full on floor five. Patient precautions include fall risk, ww use, 4LO2, A&Ox2, poor historian, and bed/chair alarm. Per OT eval, OT recommends patient return to LTC with OT services. [place], [id number]. Thank you for the referral. Rosanna Mendiola, OTR/L
[2019-05-10 12:00] VITALS: BP 111/55
--- NOTE | 2019-05-10 14:24 | NUR ---
PT IS JAIL CARE AT [facility] AND WILL RETURN WHEN MEDICALLY STABLE. WILL CONTINUE TO FOLLOW.
--- NOTE | 2019-05-10 14:56 | NUR ---
Patient comes in from [facility] as a intermediate project manager care resident. Updated clinicals faxed for review. patient is ok to return when medically stable for discharge.
[2019-05-10 16:00] VITALS: BP 112/76
--- NOTE | 2019-05-10 17:00 | NUR ---
Hep Lock discontinued TO RIGHT WRIST DUE TO PT PULLING OUT. Site asymptomatic. Pressure applied. Sterile dressing applied. PAUL WILLAMS
--- NOTE | 2019-05-10 17:42 | NUR ---
IV started right hand with #22 protective cath after 1 attempts. Site prepped with ALCOHOL Sterile dressing applied. Patient tolerated procedure well. IV SITE LOCKED WITH NORMAL SALINE. PAUL WILLAMS
[2019-05-10 20:00] VITALS: BP 104/44
[2019-05-11] VITALS: BP 104/44; BP 111/61
--- NOTE | 2019-05-11 00:32 | NUR ---
TYLENOL GIVEN PER PT REQUEST FOR GEN DISCOMFORT. CALL LIGHT IN REACH. BED ALARM MAINTAINED FOR SAFETY.
--- NOTE | 2019-05-11 01:40 | NUR ---
24 HOUR CHART CHECK COMPLETE.
--- NOTE | 2019-05-11 07:10 | NUR ---
ARRIVED ON SHIFT, INTRODUCED TO PATIENT, NO NEEDS VOICED AT THIS TIME, BED IN LOW LOCKED POSITION, BED ALARM ON, WHITE BOARD UPDATED.
[2019-05-11 07:33] LABS: HEMATOCRIT 31.9 % (37.0-47.0); HEMOGLOBIN 9.4 g/dl (12.0-16.0); MEAN CORPUSCULAR HGB 32.4 pg (27.0-31.0); MEAN CORPUSCULAR HGB CONC 29.5 g/dl (33.0-37.0); MEAN PLATELET VOLUME 10.1 fl (9.6-12.3); PLATELET COUNT AUTOMATED 300 10*3/uL (130-400); RED CELL DISTRI WIDTH 14.9 % (0-14.5); WHITE BLOOD COUNT 10.4 10*3/uL (4.8-10.8)
[2019-05-11 08:00] VITALS: BP 104/54
[2019-05-11 08:31] LABS: PLATELET SUFFICIENCY NORMAL (NORMAL); STOMATOCYTE MODERATE; TOTAL CELLS COUNTED 100 #CELLS
--- NOTE | 2019-05-11 09:05 | NUR ---
Shift chart check completed.
--- NOTE | 2019-05-11 11:30 | NUR ---
OT NOTE Pt was seen this A.M. 1:1 for 30 minute OT session. Upon arrival pt was supine in bed. Pt identified by name and and had no complaints at this time. Pt presented to therapy with continuous 5L-O2 via NC which she remained on throughout the entire session. Pt transferred supine to sit EOB with Aleida for assist with UB. Sit to stand completed from bed level with Aleida and use of w/w for UE support. Functional mobility was then completed to the bathroom with CGA and use of w/w for UE support. [facility] required education on safety with the O2 line which she continued to need Aleida to correct. Pt transferred on/off standard commode with Aleida due to poor safety with commode alignment, sitting too soon, and low surface. Pt then stood sink side while washing her hands, face, completing oral care, and hair care with CGA. Throughout pt presented with fatigue after aprox 60 seconds resulting in a seated rest break. Functional mobility was then completed back to the recliner with call light in hand, tray table in place, and body alarm activated for safety. Throughout all mobility pt had two LOB that required Aleida to correct due to poor safety awareness, poor safety with O2 line, and poor walker navigation/management. Continue with rec D/C plan to SNF. KADI Bacon/Cheryl
[2019-05-11 12:00] VITALS: BP 148/50
--- NOTE | 2019-05-11 13:02 | NUR ---
PT IS JAIL CARE AT [facility] AND CAN RETURN WHEN MEDICALLY STABLE.
[2019-05-11 16:00] VITALS: BP 104/51
--- NOTE | 2019-05-11 19:56 | NUR ---
24 HR chart check completed.
[2019-05-11 20:00] VITALS: BP 111/66
--- NOTE | 2019-05-11 20:30 | NUR ---
RESTING IN BED WITH NO ACUTE DISTRESS NOTED. RESPIRATIONS EASY. LUNGS DIMINISHED WITH LEFT PB CRACKLES. PULSE OX 96% 4L, TITRATED TO 3L AND HUMIDIFICATION APPLIED. CLAIMS COUGH PROD FOR WHITE. +2 BLE EDEMA. CALL LIGHT WITHIN REACH. NO VOICED COMPLAINTS
--- NOTE | 2019-05-11 21:27 | NUR ---
REQUESTED AND RECEIVED TYLENOL AND RESTORIL PER PRN ORDER FOR COMPLAINTS OF GENERALIZED ACHES/PAIN AND TO ASSIST WITH SLEEP. CALL LIGHT WITHIN REACH. WILL MONITOR FOR EFFECTIVENESS
[2019-05-12] VITALS: BP 113/60
--- NOTE | 2019-05-12 | NUR ---
MEDS EFFECTIVE. SLEEPING RESPIRATIONS EASY. VSS. PULSE OX 97% 3L HUMIDIFIED. CALL LIGHT WITHIN REACH. BED ALARM MAINTAINED FOR SAFETY
--- NOTE | 2019-05-12 03:00 | NUR ---
CONTINUES TO SLEEP WITH NO ACUTE DISTRESS NOTED. RESPIRATIONS EASY. O2 IN USE. CALL LIGHT WITHIN REACH. BED ALARM MAINTAINED FOR SAFETY
--- NOTE | 2019-05-12 06:00 | NUR ---
SLEPT THROUGHOUT NIGHT WITH NO DISTRESS NOTED. RESPIRATIONS EASY. O2 IN USE. CALL LIGHT WITHIN REACH. NO VOICED COMPLAINTS THIS SHIFT
[2019-05-12 08:00] VITALS: BP 102/60
[2019-05-12 09:10] LABS: HEMATOCRIT 32.1 % (37.0-47.0); HEMOGLOBIN 9.5 g/dl (12.0-16.0); MEAN CELL VOLUME 110.3 fl (81.0-99.0); MEAN CORPUSCULAR HGB 32.6 pg (27.0-31.0); MEAN CORPUSCULAR HGB CONC 29.6 g/dl (33.0-37.0); MEAN PLATELET VOLUME 9.8 fl (9.6-12.3); PLATELET COUNT AUTOMATED 277 10*3/uL (130-400); RED BLOOD COUNT 2.91 10*6/uL (4.10-5.10); RED CELL DISTRI WIDTH 15.2 % (0-14.5); WHITE BLOOD COUNT 9.2 10*3/uL (4.8-10.8)
[2019-05-12] MEDS ORDERED: AVPAK AZITHROM250 MG PO (10:04)
[2019-05-12] MEDS ORDERED: PREDNISONE10 MG PO (10:04)
[2019-05-12] MEDS ORDERED: NEURONTIN300 MG PO (10:05)
[2019-05-12 10:08] LABS: PLATELET SUFFICIENCY NORMAL (NORMAL); TOTAL CELLS COUNTED 100 #CELLS
[2019-05-12 10:09] LABS: POLYCHROMASIA SLIGHT
--- NOTE | 2019-05-12 11:34 | NUR ---
Patient is discharged to return to [facility] via [place] at 1PM. NH, nursing/game warden and both son and daughter notified.
[2019-05-12 12:00] VITALS: BP 107/56
--- NOTE | 2019-05-12 12:17 | NUR ---
Patient was seen for OT x 30 minutes beginning with sit to stand with close supervision due to hx of falls. Pt donned pants with supervision only when standing to pull pants over hips. Pt donned robe without difficulty. Fxl mobility throughout room with w/walker with close supervision. Transfer to bedside chair with supervision. Call light & tray table within reach. Continue with OT POC. Ya GARCIA/Cheryl
--- NOTE | 2019-05-12 12:51 | NUR ---
PT IS [facility] AT [facility] AND WILL RETURN WHEN MEDICALLY STABLE. WILL CONTINUE TO FOLLOW.
--- NOTE | 2019-05-12 12:55 | NUR ---
CALL PLACED TO THE [facility], SPOKE WITH RIYA RN, NURSE TO NURSE REPORT GIVEN.
--- NOTE | 2019-05-12 13:25 | NUR ---
Discharge instructions reviewed with patient/family. Patient receptive and verbalizes understanding. Follow-up care arranged. Written instructions given to patient/family, IV REMOVED, LEFT VIA [facility]. ZACHERY ROBERSON
--- NOTE | 2019-05-12 16:34 | NUR ---
OCCUPATIONAL THERAPY CO-SIGN I approve of the Occupational Therapy notes written above. VINOD ENGLISH OTR/Cheryl
--- NOTE | 2019-05-16 11:32 | NUR ---
CALLED FLOR[facility] OF [facility] AND PT WAS ON 2L OF OXYGEN AT THE FACILITY PRIOR TO ADMISSION.
== END 2019-05-12 13:25 | disposition other institution (70) | DRG 177 ==
LOC: ED 17:33 → EDHOLD 22:52 → 5E 22:52
PROVIDERS: Internal Medicine; Nurse Practitioner Family; ADMIT Internal Medicine
DX: J69.0 Pneumonitis due to inhalation of food and vomit (principal); J96.20 Acute and chronic respiratory failure, unspecified whether with hypoxia or hypercapnia; J44.0 Chronic obstructive pulmonary disease with (acute) lower respiratory infection; E44.0 Moderate protein-calorie malnutrition; E87.8 Other disorders of electrolyte and fluid balance, not elsewhere classified; D53.9 Nutritional anemia, unspecified; E83.41 Hypermagnesemia; I50.9 Heart failure, unspecified; F03.90 Unspecified dementia, unspecified severity, without behavioral disturbance, psychotic disturbance, mood disturbance, and anxiety; M19.90 Unspecified osteoarthritis, unspecified site; I25.10 Atherosclerotic heart disease of native coronary artery without angina pectoris; G89.29 Other chronic pain; E03.9 Hypothyroidism, unspecified; K59.00 Constipation, unspecified; F41.9 Anxiety disorder, unspecified; F32.9 Major depressive disorder, single episode, unspecified; N18.3 Chronic kidney disease, stage 3 (moderate); G62.9 Polyneuropathy, unspecified; Z96.659 Presence of unspecified artificial knee joint; Z99.81 Dependence on supplemental oxygen; Z88.5 Allergy status to narcotic agent; Z88.0 Allergy status to penicillin; Z79.82 Long term (current) use of aspirin; Z79.899 Other long term (current) drug therapy; Z90.49 Acquired absence of other specified parts of digestive tract; Z90.710 Acquired absence of both cervix and uterus; Z83.6 Family history of other diseases of the respiratory system; Z68.29 Body mass index [BMI] 29.0-29.9, adult

== ENCOUNTER 2019-06-07 05:17 | Inpatient (IN) | payer OTHER ==
[~2019-06-07] VITALS: Ht 157.4 cm; Wt 80.8 kg
[2019-06-07] VITALS (7 sets, daily range): BP systolic 101–150; BP diastolic 44–90
[~2019-06-07 05:17] MED LIST changes: +AVPAK AZITHROM250 MG PO; +KLOR-CON 1010 ME1 PO; +MUCINEX ER600 MG PO
[2019-06-07 05:52] LABS: HEMATOCRIT 33.8 % (37.0-47.0); HEMOGLOBIN 10.1 g/dl (12.0-16.0); MEAN CELL VOLUME 112.7 fl (81.0-99.0); MEAN CORPUSCULAR HGB 33.7 pg (27.0-31.0); MEAN CORPUSCULAR HGB CONC 29.9 g/dl (33.0-37.0); PLATELET COUNT AUTOMATED 135 10*3/uL (130-400); RED CELL DISTRI WIDTH 15.4 % (0-14.5); WHITE BLOOD COUNT 4.4 10*3/uL (4.8-10.8)
[2019-06-07 06:04] LABS: ALKALINE PHOSPHATASE 73 U/L (45-117); BUN 19 mg/dl (7-24); CHLORIDE 99 mmol/L (98-107); CREATININE 1.16 mg/dL (0.55-1.02); POTASSIUM 4.3 mmol/L (3.5-5.1); SGOT/AST 12 IU/L (3-35); SGPT/ALT 12 U/L (12-78); SODIUM 140 mmol/L (136-145); TOTAL PROTEIN 7.1 gm/dL (6.4-8.2)
[2019-06-07 06:15] LABS: ACT PARTIAL THROMBO TIME 26.3 SECONDS (20.0-32.1); INTERNATIONAL NORM RATIO 0.9 (2.0-3.5)
[2019-06-07 06:21] LABS: TROPONIN I < 0.015 ng/ml (<0.045)
[2019-06-07 06:31] LABS: PLATELET SUFFICIENCY NORMAL (NORMAL); TOTAL CELLS COUNTED 100 #CELLS
--- NOTE | 2019-06-07 07:00 | NUR ---
Report from Esau croft.
--- NOTE | 2019-06-07 07:11 | NUR ---
In to see pt at this time.Pt is alert and orientated x2 and just needs to be reminded that she is in hospital.Pt turned in bed and no wounds noted.Old healing wound noted on left lower leg and discoloration noted to left upper foot.Pt turned and incotinence x1 of urine.Pt denines shortness of breath at this time and lung sounds documented.24 gauge on left lower forearm intact with blood return.Pt states she does note need anything at this time.
--- NOTE | 2019-06-07 07:40 | NUR ---
Time: 739 A 84 year old FEMALE admitted to 5E under services of DANILO PRIEST DO. Pt. arrived via stretcher from ER. Chief complaint: COPD EXACERBATION. TRAN AGGARWAL
[2019-06-07] MEDS ORDERED: SYMB160 INH (08:15)
[2019-06-07] MEDS ORDERED: TYLENOL EXTRA500 MG PO (08:15)
[2019-06-07] MEDS ORDERED: PREDNISONE20 M1 PO (08:16)
[2019-06-07] MEDS ORDERED: Ipratropium Brom3 ML INH (08:17)
--- NOTE | 2019-06-07 09:17 | NUR ---
JENNIFER ATKINS [id number] Please refer to the physician's history and physical for past medical history, comorbid conditions, and allergies. Diagnosis: COPD EXACERBATION Garland Score: 15,AT RISK WOUND DESCRIPTIONS: This nurse was asked to see patient regarding red area noted to patient buttocks. Upon assessment red blanchable area noted to intergluteal cleft. No open area noted. No drainage noted at time of assessment. Patient denied pain at time of assessment Surface the patient is resting on: Isoflex SKIN PREVENTION RECOMMENDATION: 1. Pressure redistribution support surface as appropriate 2. Elevate heels 3. Remove boots/TEDS every shift and reapply 4. Head of bed 30 degrees as tolerated 5. Assess nutrition and hydration 6. Manage moisture 7. Avoid the use of containment devices while in bed 8. Use absorptive products on surfaces limit layers of linens on bed 9. Turn and reposition every 1-2 hours in bed and every 1 hour in chair as tolerated 10. Weight shifts every 15 minutes while up in chair 11. Offloading with pillows or device to keep heels elevated off bed 12. Monitor skin at least every shift 13. Inspect under medical devices twice a day WOUND TREATMENT RECOMMENDATIONS: Dressing changes: Cleanse intergluteal cleft with soap and water and apply hydraguard every shift and prn for soiling Wheelchair cushion when oob
[2019-06-08] VITALS: BP 106/77
--- NOTE | 2019-06-08 01:54 | NUR ---
RESTORIL GIVEN PER PRN ORDER FOR INABILITY TO SLEEP. SEE EMAR. REINFORCED USE OF CALL LIGHT
--- NOTE | 2019-06-08 03:00 | NUR ---
PATIENT RESTING QUIETLY. MEDICATION APPEARS EFFECTIVE.
[2019-06-08 06:41] LABS: HEMATOCRIT 35.3 % (37.0-47.0); HEMOGLOBIN 10.5 g/dl (12.0-16.0); MEAN CORPUSCULAR HGB 32.6 pg (27.0-31.0); MEAN CORPUSCULAR HGB CONC 29.7 g/dl (33.0-37.0); RED BLOOD COUNT 3.22 10*6/uL (4.10-5.10); RED CELL DISTRI WIDTH 15.3 % (0-14.5); WHITE BLOOD COUNT 6.6 10*3/uL (4.8-10.8)
[2019-06-08 06:43] LABS: MEAN CELL VOLUME 109.6 fl (81.0-99.0); PLATELET COUNT AUTOMATED 179 10*3/uL (130-400)
[2019-06-08 06:49] LABS: ACT PARTIAL THROMBO TIME 26.3 SECONDS (20.0-32.1); INTERNATIONAL NORM RATIO 0.9 (2.0-3.5)
[2019-06-08 07:21] LABS: ALBUMIN 3.1 gm/dl (3.1-4.5); CREATININE 1.12 mg/dL (0.55-1.02); FREE T4 0.61 ng/dl (0.76-1.46); PHOSPHOROUS 2.2 mg/dL (2.5-4.9); TOTAL PROTEIN 7.2 gm/dL (6.4-8.2)
[2019-06-08 07:23] LABS: PLATELET SUFFICIENCY NORMAL (NORMAL); TOTAL CELLS COUNTED 100 #CELLS
[2019-06-08 07:25] LABS: THYROID STIM HORMONE (HS) 1.12 uIU/ml (0.358-4.75)
[2019-06-08 07:46] LABS: VITAMIN D, 25-HYDROXY 27.1 ng/mL (30-100)
[2019-06-08 08:00] VITALS: BP 107/55
--- NOTE | 2019-06-08 08:30 | NUR ---
Gritting Machine Operator in to see patient. She is sitting up in her bedside chair without distress noted. She is a LTC resident at [place] [facility] [facility]. She states she ambulated with a walker. O2 @ 2-3L nc per patient at [facility]. senior production planner following. When medically stable she will be discharged to [place] [facility].
--- NOTE | 2019-06-08 09:52 | NUR ---
Nutritional Support Services Note: Pt triggered for food allergies. Shrimp allergy noted. Pt is on a regular diet consuming 100% of meals. Continue to encourage good PO intakes. No nutrition intervention needed. OLGA Ogden food and beverage intern
--- NOTE | 2019-06-08 10:28 | NUR ---
PT PULLED IV OUT LEFT, NEW IV STARTED RIGHT FA #22, GOOD BLOOD RETURN, PT TOLERATED WELL. KERLEX WRAPPED OVER IV TO PROTECT SITE. PT SITTING UP IN CHAIR, CONFUSED, CHAIR ALARM ON
[2019-06-08 12:00] VITALS: BP 114/67
--- NOTE | 2019-06-08 13:11 | NUR ---
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 OCCUPATIONAL THERAPY INSTRUCTOR contact facility who is willing to take her back upon discharge. OCCUPATIONAL THERAPY INSTRUCTOR faxed updated information on this date.
[2019-06-08 16:00] VITALS: BP 124/67
[2019-06-08 20:00] VITALS: BP 139/79; BP 96/59
[2019-06-09] VITALS: BP 129/73
[2019-06-09 06:52] LABS: CREATININE 1.11 mg/dL (0.55-1.02); POTASSIUM 4.3 mmol/L (3.5-5.1)
[2019-06-09 08:00] VITALS: BP 111/78
--- NOTE | 2019-06-09 11:00 | NUR ---
State Patrol Officer in to see patient. No new needs or request at this time. When medically stable she will be discharged to [facility] where she is a LTC resident. material planner following.
[2019-06-09 12:00] VITALS: BP 114/91
[2019-06-09 16:00] VITALS: BP 107/48
[2019-06-09 20:00] VITALS: BP 117/63
[2019-06-10] VITALS: BP 103/46
[2019-06-10 07:32] LABS: BUN 33 mg/dl (7-24); CHLORIDE 101 mmol/L (98-107); CREATININE 1.02 mg/dL (0.55-1.02); POTASSIUM 4.3 mmol/L (3.5-5.1); SODIUM 142 mmol/L (136-145)
[2019-06-10 08:00] VITALS: BP 111/80
[2019-06-10 12:00] VITALS: BP 108/60
[2019-06-10 16:00] VITALS: BP 105/60
--- NOTE | 2019-06-10 19:15 | NUR ---
ARRIVED ON SHIFT, INTRODUCED TO PATIENT, SHE IS CURRENTLY IN RECLINER, WHEEL LOCKS ENGAGED, PERSONAL ALARM ATTACHED, CALL LIGHT WITHIN REACH, NO NEEDS VOICED AT THIS TIME, WHITE BOARD UPDATED.
[2019-06-10 20:00] VITALS: BP 102/47
--- NOTE | 2019-06-10 20:24 | NUR ---
24 HR chart check completed.
[2019-06-11] VITALS: BP 102/44
[2019-06-11 08:00] VITALS: BP 105/68
--- NOTE | 2019-06-11 08:30 | NUR ---
Patient resting quietly with no c/o discomfort. Respirations easy and regular. ON O2. Vital signs stable. No overt distress. CHRISTINE HARLEY
[2019-06-11] MEDS ORDERED: ZITHROMAX500 MG PO (11:34)
[2019-06-11] MEDS ORDERED: PREDNISONE10 MG PO (11:37)
[2019-06-11 12:00] VITALS: BP 118/58
--- NOTE | 2019-06-11 12:00 | NUR ---
DAUGHTER ZHEN NOTIFIED OF DISCHARGE OF 2PM TO [facility]. SHE STATES UNDERSTANDING.
--- NOTE | 2019-06-11 14:01 | NUR ---
REPORT CALLED TO [facility] SPOKE WITH NICOLE
--- NOTE | 2019-06-11 14:01 | NUR ---
Discharge instructions reviewed with patient/family. Patient receptive and verbalizes understanding. Follow-up care arranged. Written instructions given to patient/family. CHRISTINE HARLEY
== END 2019-06-11 14:01 | disposition other institution (70) | DRG 177 ==
LOC: ED 05:17 → EDHOLD 06:36 → 5E 06:36 → EDHOLD 06:46 → 5E 07:05
PROVIDERS: Emergency Medicine; Internal Medicine; ADMIT Internal Medicine
DX: J15.6 Pneumonia due to other Gram-negative bacteria (principal); J96.21 Acute and chronic respiratory failure with hypoxia; J96.22 Acute and chronic respiratory failure with hypercapnia; J44.0 Chronic obstructive pulmonary disease with (acute) lower respiratory infection; E44.0 Moderate protein-calorie malnutrition; J44.1 Chronic obstructive pulmonary disease with (acute) exacerbation; I50.9 Heart failure, unspecified; E83.41 Hypermagnesemia; M16.11 Unilateral primary osteoarthritis, right hip; R73.9 Hyperglycemia, unspecified; D53.9 Nutritional anemia, unspecified; F03.90 Unspecified dementia, unspecified severity, without behavioral disturbance, psychotic disturbance, mood disturbance, and anxiety; I25.10 Atherosclerotic heart disease of native coronary artery without angina pectoris; G89.29 Other chronic pain; F32.9 Major depressive disorder, single episode, unspecified; N18.3 Chronic kidney disease, stage 3 (moderate); G62.9 Polyneuropathy, unspecified; Z96.659 Presence of unspecified artificial knee joint; Z99.81 Dependence on supplemental oxygen; Z68.33 Body mass index [BMI] 33.0-33.9, adult; Z88.5 Allergy status to narcotic agent; Z88.0 Allergy status to penicillin; Z91.013 Allergy to seafood; Z79.82 Long term (current) use of aspirin; Z79.899 Other long term (current) drug therapy; Z90.49 Acquired absence of other specified parts of digestive tract; Z90.710 Acquired absence of both cervix and uterus; Z83.6 Family history of other diseases of the respiratory system

== ENCOUNTER 2020-09-05 13:05 | Inpatient (IN) | payer OTHER ==
[~2020-09-05] VITALS: Ht 160 cm; Wt 77.7 kg
[2020-09-05] VITALS (9 sets, daily range): BP systolic 82–101; BP diastolic 30–54
[~2020-09-05 13:05] MED LIST changes: +PREDNISONE20 M1 PO; +SYMB160 INH; +ZITHROMAX500 MG PO
[2020-09-05 14:11] LABS: BASO % 0.4 % (0.0-1.0); EOS # 0.2 10*3/uL (0.0-0.4); EOS % 4.2 % (1.0-4.0); HEMATOCRIT 31.1 % (37.0-47.0); LYMPH # 0.4 10*3/uL (1.3-4.4); LYMPH % 6.8 % (27.0-41.0); MEAN CELL VOLUME 98.7 fl (81.0-99.0); MEAN CORPUSCULAR HGB 27.6 pg (27.0-31.0); MEAN PLATELET VOLUME 10.4 fl (9.6-12.3); MONO # 0.4 10*3/uL (0.1-1.0); MONO % 7.2 % (3.0-9.0); NEUT # 4.3 10*3/uL (2.3-7.9); NEUT % 81.2 % (47.0-73.0); PLATELET COUNT AUTOMATED 235 10*3/uL (130-400); RED BLOOD COUNT 3.15 10*6/uL (4.10-5.10); RED CELL DISTRI WIDTH 18.4 % (0-14.5); WHITE BLOOD COUNT 5.3 10*3/uL (4.8-10.8)
[2020-09-05 14:27] LABS: ALBUMIN 3.2 gm/dl (3.1-4.5); ALKALINE PHOSPHATASE 97 U/L (45-117); BUN 50 mg/dl (7-24); CHLORIDE 104 mmol/L (98-107); CREATININE 1.48 mg/dL (0.55-1.02); SGOT/AST 19 IU/L (3-35); SGPT/ALT 12 U/L (12-78); SODIUM 139 mmol/L (136-145); TOTAL PROTEIN 7.5 gm/dL (6.4-8.2)
[2020-09-05 14:28] LABS: TROPONIN I < 0.015 ng/ml (<0.045)
[2020-09-05 15:43] LABS: BILIRUBIN Negative (Negative); BLOOD Negative (Negative); CLARITY Clear (Clear); COLOR Yellow (Yellow); GLUCOSE Negative (Negative); KETONE Negative (Negative); LEUKO ESTERASE Negative (Negative); NITRITE Negative (Negative)
[2020-09-05 15:57] LABS: FINE GRANULAR CAST 0-2
[2020-09-05] MEDS ORDERED: EXELON1 EAC1 TD (22:37)
[2020-09-05] MEDS ORDERED: EXELON1 EACH T (22:38)
[2020-09-05] MEDS ORDERED: MIRTAZAPINE7.5 MG PO (22:38)
[2020-09-05] MEDS ORDERED: ASPERCREME76.5 GM T (22:39)
[2020-09-05] MEDS ORDERED: POTASSIUM CHLO20 ME3 PO (22:40)
[2020-09-05] MEDS ORDERED: ACETAZOLAMIDE250 MG PO (22:40)
[2020-09-05] MEDS ORDERED: CORTISONE28 GM T (22:41)
[2020-09-05] MEDS ORDERED: KENALOG 0.1%80 GM T (22:42)
[2020-09-05] MEDS ORDERED: Zaroxolyn,Diul2.5 MG PO (22:43)
[2020-09-05] MEDS ORDERED: IMDUR SA30 MG PO (22:43)
[2020-09-05] MEDS ORDERED: LASIX40 MG PO (22:44)
[2020-09-05] MEDS ORDERED: ALDACTONE25 M1 PO (22:44)
[2020-09-05] MEDS ORDERED: MILK OF MA400 MG/5 M PO (22:45)
[2020-09-05] MEDS ORDERED: ASPIRIN CHEWABL81 MG PO (22:45)
[2020-09-05] MEDS ORDERED: PRILOSEC20 M1 PO (22:45)
[2020-09-05] MEDS ORDERED: FERROUS GLUCON324 MG PO (22:46)
[2020-09-05] MEDS ORDERED: SERTRALINE HYDR25 MG PO (22:47)
[2020-09-05] MEDS ORDERED: VITAMIN D350 MC2 GT (22:48)
[2020-09-05] MEDS ORDERED: NEURONTIN300 MG PO (22:50)
[2020-09-05] MEDS ORDERED: SENNA LAX8.6 M1 PO (22:50)
[2020-09-05] MEDS ORDERED: Synthroid,Lev125 MCG PO (22:51)
[2020-09-05] MEDS ORDERED: TYLENOL325 M2 PO (22:51)
[2020-09-05] MEDS ORDERED: WIXELA 250-501 EACH INH (22:51)
[2020-09-05] MEDS ORDERED: CALCI-MIX500 MG PO (22:52)
[2020-09-06] VITALS: BP 98/53
[2020-09-06 06:03] LABS: ALBUMIN 2.9 gm/dl (3.1-4.5); CREATININE 1.21 mg/dL (0.55-1.02); POTASSIUM 3.7 mmol/L (3.5-5.1); TOTAL PROTEIN 6.9 gm/dL (6.4-8.2)
[2020-09-06 06:11] LABS: BASO % 0.2 % (0.0-1.0); EOS # 0.2 10*3/uL (0.0-0.4); EOS % 5.4 % (1.0-4.0); HEMATOCRIT 28.8 % (37.0-47.0); LYMPH # 0.5 10*3/uL (1.3-4.4); LYMPH % 12.3 % (27.0-41.0); MEAN CELL VOLUME 100.7 fl (81.0-99.0); MEAN CORPUSCULAR HGB 27.6 pg (27.0-31.0); MEAN CORPUSCULAR HGB CONC 27.4 g/dl (33.0-37.0); MEAN PLATELET VOLUME 10.6 fl (9.6-12.3); MONO # 0.4 10*3/uL (0.1-1.0); MONO % 9.4 % (3.0-9.0); NEUT # 2.9 10*3/uL (2.3-7.9); NEUT % 72.5 % (47.0-73.0); PLATELET COUNT AUTOMATED 195 10*3/uL (130-400); RED BLOOD COUNT 2.86 10*6/uL (4.10-5.10); RED CELL DISTRI WIDTH 18.5 % (0-14.5); WHITE BLOOD COUNT 4.1 10*3/uL (4.8-10.8)
[2020-09-06 08:00] VITALS: BP 102/58
[2020-09-06 12:00] VITALS: BP 99/51
[2020-09-06 16:04] VITALS: BP 102/49
[2020-09-06 20:00] VITALS: BP 94/43
[2020-09-07] VITALS: BP 92/44
[2020-09-07 08:00] VITALS: BP 96/48
[2020-09-07 12:00] VITALS: BP 88/58
[2020-09-07 16:00] VITALS: BP 90/40
[2020-09-07 20:00] VITALS: BP 91/54
[2020-09-08] VITALS: BP 88/45
[2020-09-08 08:00] VITALS: BP 94/59
[2020-09-08 12:00] VITALS: BP 90/50
[2020-09-08 16:00] VITALS: BP 98/42
[2020-09-08 20:00] VITALS: BP 92/35
[2020-09-08 20:30] VITALS: BP 100/60
[2020-09-09] VITALS: BP 109/50
[2020-09-09 08:00] VITALS: BP 101/52
[2020-09-09 12:00] VITALS: BP 98/50
[2020-09-09] MEDS ORDERED: LEVOFLOXACIN500 MG PO (14:15)
[2020-09-09 16:00] VITALS: BP 98/50
== END 2020-09-09 17:19 | DRG 871 ==
LOC: ED 13:05 → 4E 17:45 → EDHOLD 17:45 → 4E 19:00
PROVIDERS: Emergency Medicine; ADMIT Internal Medicine; ATTEND Internal Medicine
DX: A41.9 Sepsis, unspecified organism (principal); J18.9 Pneumonia, unspecified organism; E44.0 Moderate protein-calorie malnutrition; J44.0 Chronic obstructive pulmonary disease with (acute) lower respiratory infection; I13.0 Hypertensive heart and chronic kidney disease with heart failure and stage 1 through stage 4 chronic kidney disease, or unspecified chronic kidney disease; F33.1 Major depressive disorder, recurrent, moderate; G30.9 Alzheimer's disease, unspecified; F02.80 Dementia in other diseases classified elsewhere, unspecified severity, without behavioral disturbance, psychotic disturbance, mood disturbance, and anxiety; I50.9 Heart failure, unspecified; N18.30 Chronic kidney disease, stage 3 unspecified; I25.10 Atherosclerotic heart disease of native coronary artery without angina pectoris; M89.49 Other hypertrophic osteoarthropathy, multiple sites; K21.00 Gastro-esophageal reflux disease with esophagitis, without bleeding; Z96.659 Presence of unspecified artificial knee joint; G62.9 Polyneuropathy, unspecified; K59.09 Other constipation; Z66 Do not resuscitate; Z51.5 Encounter for palliative care; E03.9 Hypothyroidism, unspecified; Z79.890 Hormone replacement therapy; Z68.30 Body mass index [BMI] 30.0-30.9, adult; Z88.0 Allergy status to penicillin; Z88.5 Allergy status to narcotic agent; Z91.013 Allergy to seafood; Z88.8 Allergy status to other drugs, medicaments and biological substances; Z90.49 Acquired absence of other specified parts of digestive tract; Z90.710 Acquired absence of both cervix and uterus; Z20.822 Contact with and (suspected) exposure to COVID-19; I95.9 Hypotension, unspecified

== ENCOUNTER 2020-09-14 16:05 | Inpatient (IN) | payer OTHER ==
[~2020-09-14] VITALS: Ht 149.8 cm; Wt 78.5 kg
[~2020-09-14 16:05] MED LIST changes: +ACETAZOLAMIDE250 MG PO; +ASPERCREME76.5 GM T; +ASPIRIN CHEWABL81 MG PO; +CALCI-MIX500 MG PO; +CORTISONE28 GM T; +EXELON1 EAC1 TD; +EXELON1 EACH T; +FERROUS GLUCON324 MG PO; +IMDUR SA30 MG PO; +KENALOG 0.1%80 GM T; +LEVOFLOXACIN500 MG PO; +MIRTAZAPINE7.5 MG PO; +POTASSIUM CHLO20 ME3 PO; +PRILOSEC20 M1 PO; +SENNA LAX8.6 M1 PO; +SERTRALINE HYDR25 MG PO; +Synthroid,Lev125 MCG PO; +TYLENOL325 M2 PO; +VITAMIN D350 MC2 GT; +WIXELA 250-501 EACH INH; +Zaroxolyn,Diul2.5 MG PO
[2020-09-14 16:09] VITALS: BP 110/66
[2020-09-14 17:22] LABS: BILIRUBIN Negative (Negative); BLOOD Negative (Negative); CLARITY Clear (Clear); COLOR Yellow (Yellow); GLUCOSE Negative (Negative); KETONE Negative (Negative); LEUKO ESTERASE Negative (Negative); NITRITE Negative (Negative)
[2020-09-14 17:34] LABS: BASO % 0.4 % (0.0-1.0); EOS # 0.4 10*3/uL (0.0-0.4); EOS % 7.2 % (1.0-4.0); HEMATOCRIT 30.2 % (37.0-47.0); LYMPH # 0.4 10*3/uL (1.3-4.4); LYMPH % 8.1 % (27.0-41.0); MEAN CELL VOLUME 93.5 fl (81.0-99.0); MEAN CORPUSCULAR HGB 28.2 pg (27.0-31.0); MEAN CORPUSCULAR HGB CONC 30.1 g/dl (33.0-37.0); MEAN PLATELET VOLUME 10.4 fl (9.6-12.3); MONO # 0.6 10*3/uL (0.1-1.0); MONO % 11.1 % (3.0-9.0); NEUT # 3.9 10*3/uL (2.3-7.9); PLATELET COUNT AUTOMATED 239 10*3/uL (130-400); RED BLOOD COUNT 3.23 10*6/uL (4.10-5.10); RED CELL DISTRI WIDTH 18.6 % (0-14.5); WHITE BLOOD COUNT 5.3 10*3/uL (4.8-10.8)
[2020-09-14 17:34] LABS: FINE GRANULAR CAST 0-2; RBC 0-2 rbc/hpf (0-2)
[2020-09-14 17:48] LABS: ALBUMIN 2.7 gm/dl (3.1-4.5); CREATININE 1.69 mg/dL (0.55-1.02); TOTAL PROTEIN 7.4 gm/dL (6.4-8.2)
[2020-09-14 20:00] VITALS: BP 121/74
[2020-09-14 21:16] VITALS: BP 114/71
[2020-09-15 02:22] VITALS: BP 101/50
[2020-09-15 02:40] VITALS: BP 101/50
[2020-09-15] MEDS ORDERED: KETOCONAZOLE 1120 ML T (02:57)
[2020-09-15 08:00] VITALS: BP 107/59
[2020-09-15 12:00] VITALS: BP 98/50
[2020-09-15 17:29] VITALS: BP 116/75
[2020-09-15 20:41] VITALS: BP 145/75
[2020-09-16] VITALS (8 sets, daily range): BP systolic 78–175; BP diastolic 42–103
[2020-09-16 06:48] LABS: BASO % 0.6 % (0.0-1.0); EOS # 0.3 10*3/uL (0.0-0.4); EOS % 6.9 % (1.0-4.0); LYMPH # 0.4 10*3/uL (1.3-4.4); LYMPH % 8.7 % (27.0-41.0); MEAN CELL VOLUME 94.3 fl (81.0-99.0); MEAN CORPUSCULAR HGB 28.3 pg (27.0-31.0); MEAN PLATELET VOLUME 10.4 fl (9.6-12.3); MONO # 0.6 10*3/uL (0.1-1.0); MONO % 11.7 % (3.0-9.0); NEUT # 3.6 10*3/uL (2.3-7.9); NEUT % 71.9 % (47.0-73.0); PLATELET COUNT AUTOMATED 228 10*3/uL (130-400); RED BLOOD COUNT 2.97 10*6/uL (4.10-5.10); RED CELL DISTRI WIDTH 18.5 % (0-14.5)
[2020-09-16 06:49] LABS: CREATININE 1.39 mg/dL (0.55-1.02); POTASSIUM 2.8 mmol/L (3.5-5.1)
[2020-09-17] VITALS: BP 102/76
[2020-09-17] MEDS ORDERED: DOXYCYCLINE100 M3 PO (07:03)
[2020-09-17 08:00] VITALS: BP 95/53
[2020-09-17 08:41] LABS: BASO % 0.3 % (0.0-1.0); EOS # 0.3 10*3/uL (0.0-0.4); EOS % 4.9 % (1.0-4.0); LYMPH # 0.5 10*3/uL (1.3-4.4); LYMPH % 7.3 % (27.0-41.0); MEAN CELL VOLUME 96.7 fl (81.0-99.0); MEAN CORPUSCULAR HGB 27.7 pg (27.0-31.0); MEAN CORPUSCULAR HGB CONC 28.6 g/dl (33.0-37.0); MONO # 0.6 10*3/uL (0.1-1.0); NEUT # 5.4 10*3/uL (2.3-7.9); NEUT % 78.2 % (47.0-73.0); PLATELET COUNT AUTOMATED 230 10*3/uL (130-400); RED CELL DISTRI WIDTH 18.8 % (0-14.5); WHITE BLOOD COUNT 6.9 10*3/uL (4.8-10.8)
[2020-09-17 08:52] LABS: BUN 26 mg/dl (7-24); CHLORIDE 104 mmol/L (98-107); CREATININE 1.02 mg/dL (0.55-1.02); SODIUM 135 mmol/L (136-145)
[2020-09-17 08:58] LABS: POTASSIUM 3.8 mmol/L (3.5-5.1)
[2020-09-17 09:07] LABS: ACID FAST SPEC PROCESSING Concentration (.)
[2020-09-17 12:00] VITALS: BP 87/50
== END 2020-09-17 14:17 | DRG 205 ==
LOC: ED 16:05 → EDHOLD 09-15 00:16 → 4E 09-15 00:16
PROVIDERS: Internal Medicine Critical Care Medicine; Physician Assistant; ADMIT Internal Medicine; ATTEND Internal Medicine
PROC: 0BC98ZZ Extirpation of Matter from Lingula Bronchus, Via Natural or Artificial Opening Endoscopic (ICD-10-PCS; principal; 2020-09-16)
PROC: 0BC48ZZ Extirpation of Matter from Right Upper Lobe Bronchus, Via Natural or Artificial Opening Endoscopic (ICD-10-PCS; 2020-09-16)
PROC: 0BC88ZZ Extirpation of Matter from Left Upper Lobe Bronchus, Via Natural or Artificial Opening Endoscopic (ICD-10-PCS; 2020-09-16)
PROC: 0BC58ZZ Extirpation of Matter from Right Middle Lobe Bronchus, Via Natural or Artificial Opening Endoscopic (ICD-10-PCS; 2020-09-16)
PROC: 0BC38ZZ Extirpation of Matter from Right Main Bronchus, Via Natural or Artificial Opening Endoscopic (ICD-10-PCS; 2020-09-16)
PROC: 0BC78ZZ Extirpation of Matter from Left Main Bronchus, Via Natural or Artificial Opening Endoscopic (ICD-10-PCS; 2020-09-16)
PROC: 0BC68ZZ Extirpation of Matter from Right Lower Lobe Bronchus, Via Natural or Artificial Opening Endoscopic (ICD-10-PCS; 2020-09-16)
PROC: 0BCB8ZZ Extirpation of Matter from Left Lower Lobe Bronchus, Via Natural or Artificial Opening Endoscopic (ICD-10-PCS; 2020-09-16)
PROC: 0BC28ZZ Extirpation of Matter from Carina, Via Natural or Artificial Opening Endoscopic (ICD-10-PCS; 2020-09-16)
DX: T17.890A Other foreign object in other parts of respiratory tract causing asphyxiation, initial encounter (principal); N17.0 Acute kidney failure with tubular necrosis; J98.11 Atelectasis; K59.00 Constipation, unspecified; E87.6 Hypokalemia; N18.32 Chronic kidney disease, stage 3b; J44.9 Chronic obstructive pulmonary disease, unspecified; I25.10 Atherosclerotic heart disease of native coronary artery without angina pectoris; F03.90 Unspecified dementia, unspecified severity, without behavioral disturbance, psychotic disturbance, mood disturbance, and anxiety; X58.XXXA Exposure to other specified factors, initial encounter; I95.9 Hypotension, unspecified; M19.90 Unspecified osteoarthritis, unspecified site; Z20.822 Contact with and (suspected) exposure to COVID-19; Z88.0 Allergy status to penicillin; Z88.5 Allergy status to narcotic agent; Z88.8 Allergy status to other drugs, medicaments and biological substances; Z90.49 Acquired absence of other specified parts of digestive tract; Z90.710 Acquired absence of both cervix and uterus; Y93.89 Activity, other specified; Y92.89 Other specified places as the place of occurrence of the external cause; Y99.8 Other external cause status